=== PATIENT | male | born 1980 | race Caucasian/White ===

== ENCOUNTER 2019-01-20 14:00 | Emergency (ER) | payer OTHER, SELFPAY ==
[2019-01-20 14:07] VITALS: BP 142/90; PULSE 80; RESP 20; TEMP 36.5; O2SAT 98; BMI 22.4
--- NOTE | 2019-01-20 14:26 | DI.RAD.S_ITS ---
PROCEDURE: XR FINGER RT MIN 2V INDICATIONS: caught in bolt fastener, obtained avulsion right thumb TECHNIQUE: AP hand, 2 views of the first sign report finger(s) acquired. COMPARISON: None. FINDINGS: Bones: No fractures or dislocations. No suspicious bony lesions. Soft tissues: No suspicious soft tissue calcifications. IMPRESSION: No fracture or foreign body seen. Dictated by: Antonio Guthrie M.D. on 01/20/2019 at 15:42 Approved by: Antonio Guthrie M.D. on 01/20/2019 at 15:43
--- NOTE | 2019-01-20 14:59 | PC.NURSE ---
contacted [facility] on [place], no records of tetanus.
--- NOTE | 2019-01-20 15:28 | ED.TRAUMA ---
HPI - Trauma <MICHELLE Harris - Last Filed: 01/20/19 19:27> General Chief Complaint: Extremity Injury, Upper Stated Complaint: wound right hand thumb from work accident Time Seen by Provider: 01/20/19 14:43 Source: patient Mode of arrival: ambulatory Limitations: no limitations History of Present Illness HPI narrative: 38-year-old healthy male presents emergency department complaining of right thumb laceration. He states he pinched the palmar surface of his thumb between a hydraulic tool and a fastener about an hour ago. He states the pain is a 2/10 and is worse with movement. He states bleeding was controlled with a pressure dressing. Denies numbness, tingling, limited range of motion, fevers, chest pain, shortness of breath, hand pain, elbow pain, or trauma to any other areas. Related Data Previous Rx's Medication Instructions Recorded cephalexin 500 mg PO QID 7 Days #28 cap 01/20/19 Allergies Allergy/AdvReac Type Severity Reaction Status Date / Time No Known Drug Allergies Allergy Verified 01/20/19 15:27 Review of Systems <MICHELLE Harris - Last Filed: 01/20/19 19:27> Review of Systems REVIEW OF SYSTEMS: GENERAL: Denies fever or chills. HENT: Denies head trauma. EYE: Denies double vision or vision loss. CARDIOVASCULAR: Denies syncope. MUSCULOSKELETAL: Denies weakness, or deformities. INTEGUMENTARY: Complains of laceration, see HPI. NEURO: Denies numbness or tingling. PFSH <MICHELLE Harris - Last Filed: 01/20/19 19:27> Medical History No significant medical problems (Acute) Social History Smoking Status: Never smoker Social History Smoking Status: Never smoker Exam <MICHELLE Harris - Last Filed: 01/20/19 19:27> Initial Vital Signs Initial Vital Signs: Vital Signs Temperature 97.7 F 01/20/19 14:07 Pulse Rate 80 01/20/19 14:07 Respiratory Rate 20 01/20/19 14:07 Blood Pressure 142/90 H 01/20/19 14:07 Pulse Oximetry 98 01/20/19 14:07 PHYSICAL EXAMINATION: GENERAL: Well groomed, alert, and cooperative. Answers questions promptly and appropriately. Vital signs noted. HENT: Normocephalic, atraumatic. RESPIRATORY: Normal respiratory rate, trachea midline, airway patent. No stridor, nasal flaring or accessory muscle use. MUSCULOSKELETAL: Normal gait and coordination. Equal tone and mass bilaterally. Full range of motion of right thumb, right hand, and right wrist. Sensation remains intact to thumb, strength was intact as well. Patient was able to make a a fist and extend his thumb without difficulty or increased pain. EXTREMITIES: CMS intact. Moves all extremities. SKIN: Warm, dry, soft, appropriate color for ethnicity. 6cm by 3cm laceration to right palmar surface of thumb. Tendon visible on wound bed. Bleeding controlled. No surrounding erythema. Sanguinous discharge from wound. Wound was irrigated with over 300 mL of normal saline. NEURO: Alert and Oriented X 3. Good coordination. PSYCH: Appropriate affect and mood. <Kena Warner DO - Last Filed: 01/21/19 07:32> Initial Vital Signs Initial Vital Signs: Vital Signs Temperature 97.7 F 01/20/19 14:07 Pulse Rate 80 01/20/19 14:07 Respiratory Rate 20 01/20/19 14:07 Blood Pressure 142/90 H 01/20/19 14:07 Pulse Oximetry 98 01/20/19 14:07 Procedures <MICHELLE Harris - Last Filed: 01/20/19 19:27> Laceration Repair R Thumb: Site: upper extremity Side (If applicable): right Size (cm): 6 Description: linear Depth: simple, single layer Local Anesthetic: lidocaine 1% and with bicarb Amount of anesthesia used (mL): 8 Pre-repair: wound explored and irrigated extensively Skin layer closed with: nylon Size (cm): 4-0 Number of sutures: 7 Technique: simple, interrupted Nerve Block Nerve Block 1: Time out performed: Yes Local Anesthetic: lidocaine 1% and with bicarb Amount of anesthesia used (mL): 8 Side: right Nerve Blocks: digital Procedure Successful: Yes Patient Tolerated Procedure: Well Complications: none Course <MICHELLE Harris - Last Filed: 01/20/19 19:27> Course Narrative: After wound was extensively irrigated, it was closed with sutures. Dr. Warner also visualized the wound. Orders Ordered: Discontinued Medications Bacitracin (Bacitracin) 1 applic TOP NOW ONE Stop: 01/20/19 16:46 Last Admin: 01/20/19 18:04 Dose: Not Given Bacitracin (Bacitracin) 1 applic TOP NOW ONE Stop: 01/20/19 18:03 Last Admin: 01/20/19 18:03 Dose: 1 applic Diphtheria/Tetanus/Acell Pertussis (Adacel) 0.5 ml IM .ONCE ONE Stop: 01/20/19 15:25 Last Admin: 01/20/19 15:30 Dose: 0.5 ml Lidocaine/Sodium Bicarbonate (Buffered Lidocaine 10 Ml Syr) 10 ml INJ NOW ONE Stop: 01/20/19 15:28 Last Admin: 01/20/19 15:32 Dose: 10 ml Tetanus/Diphtheria Toxoids (Td) 0.5 ml IM .ONCE ONE Stop: 01/20/19 14:59 Last Admin: 01/20/19 16:02 Dose: Not Given Vital Signs - 8 hr 01/20/19 14:07 01/20/19 17:42 Temperature 97.7 F Pulse Rate 80 Respiratory Rate 20 15 Blood Pressure 142/90 H Blood Pressure [Left Arm] 126/83 Pulse Oximetry 98 100 <Kena Warner, DO - Last Filed: 01/21/19 07:32> Orders Ordered: Discontinued Medications Bacitracin (Bacitracin) 1 applic TOP NOW ONE Stop: 01/20/19 16:46 Last Admin: 01/20/19 18:04 Dose: Not Given Bacitracin (Bacitracin) 1 applic TOP NOW ONE Stop: 01/20/19 18:03 Last Admin: 01/20/19 18:03 Dose: 1 applic Diphtheria/Tetanus/Acell Pertussis (Adacel) 0.5 ml IM .ONCE ONE Stop: 01/20/19 15:25 Last Admin: 01/20/19 15:30 Dose: 0.5 ml Lidocaine/Sodium Bicarbonate (Buffered Lidocaine 10 Ml Syr) 10 ml INJ NOW ONE Stop: 01/20/19 15:28 Last Admin: 01/20/19 15:32 Dose: 10 ml Tetanus/Diphtheria Toxoids (Td) 0.5 ml IM .ONCE ONE Stop: 01/20/19 14:59 Last Admin: 01/20/19 16:02 Dose: Not Given Vital Signs - 8 hr 01/20/19 14:07 01/20/19 17:42 Temperature 97.7 F Pulse Rate 80 Respiratory Rate 20 15 Blood Pressure 142/90 H Blood Pressure [Left Arm] 126/83 Pulse Oximetry 98 100 [facility] - Trauma <MICHELLE Harris - Last Filed: 01/20/19 19:27> Medical Records Attestation: I reviewed the patient's medical records. Lab Data Attestation: I reviewed the patient's lab results. Imaging Data Right Digit XR: Radiologist's impression: [address] [address] XRay Report Signed Patient: Stevan Bower JMR#: [id number] : 1980Acct:[id number] Age/Sex: 38 / MDate of Service: 01/20/19 Loc: ED Accession Number: [id number] Procedure: XR finger RT min 2V Ordering Provider: Kena Warner D.O. PROCEDURE: XR FINGER RT MIN 2V INDICATIONS: caught in bolt fastener, obtained avulsion right thumb TECHNIQUE: AP hand, 2 views of the first sign report finger(s) acquired. COMPARISON: None. FINDINGS: Bones: No fractures or dislocations. No suspicious bony lesions. Soft tissues: No suspicious soft tissue calcifications. IMPRESSION: No fracture or foreign body seen. Dictated by: Antonio Guthrie M.D. on 01/20/2019 at 15:42 Approved by: Antonio Guthrie M.D. on 01/20/2019 at 15:43 [facility] Narrative Medical decision making narrative: Simple laceration requiring sutures, due to tendon exposure prophylactic antibiotics were given. No bony involvement due to no findings on x-ray. Discharge Plan Departure Patient Disposition: Home Clinical Impression: Laceration Discharge Date/Time: 01/20/19 18:15 Interventions: ED Discharge Assessment Last Done: 01/20/19 18:12 Instructions: DI for Laceration Repair -- Simple Activity Restrictions/Additional Instructions: Thank you for entrusting me with your care today. As discussed, your x-ray is negative for fractures. I have placed 7 sutures in your thumb. Because your tendon was exposed I prescribed you antibiotics, please take these as directed. Your sutures can be removed in about 10 days, this can be done at your primary care provider office or the walk-in clinic. Please monitor your wound for signs of infection such as increased redness, significant swelling, pus drainage, or fevers. If this occurs, please return to the emergency department. Prescriptions: New cephalexin 500 mg capsule 500 mg PO QID 7 Days Qty: 28 RF: 0 <Kena Warner DO - Last Filed: 01/21/19 07:32> [facility] ED Attending Yue Attestation: I was immediately available in the department for consultation. Documentation has been reviewed. I agree with assessment and plan.
[2019-01-20] MEDS: TET,DIPH,PERTUSS(ACELL),VAC/PF 0.5 ML SYRINGE IM (15:30)
[2019-01-20] MEDS: LIDO 1%/SOD BICARB 8.4% (10ML) 10 ML SYRINGE INJ (15:32)
--- NOTE | 2019-01-20 15:33 | ED_ITS ---
HPI - Trauma <MICHELLE Harris - Last Filed: 01/20/19 19:27> General Chief Complaint: Extremity Injury, Upper Stated Complaint: wound right hand thumb from work accident Time Seen by Provider: 01/20/19 14:43 Source: patient Mode of arrival: ambulatory Limitations: no limitations History of Present Illness HPI narrative: 38-year-old healthy male presents emergency department complaining of right thumb laceration. He states he pinched the palmar surface of his thumb between a hydraulic tool and a fastener about an hour ago. He states the pain is a 2/10 and is worse with movement. He states bleeding was controlled with a pressure dressing. Denies numbness, tingling, limited range of motion, fevers, chest pain, shortness of breath, hand pain, elbow pain, or trauma to any other areas. Related Data Previous Rx's Medication Instructions Recorded cephalexin 500 mg PO QID 7 Days #28 cap 01/20/19 Allergies Allergy/AdvReac Type Severity Reaction Status Date / Time No Known Drug Allergies Allergy Verified 01/20/19 15:27 Review of Systems <MICHELLE Harris - Last Filed: 01/20/19 19:27> Review of Systems REVIEW OF SYSTEMS: GENERAL: Denies fever or chills. HENT: Denies head trauma. EYE: Denies double vision or vision loss. CARDIOVASCULAR: Denies syncope. MUSCULOSKELETAL: Denies weakness, or deformities. INTEGUMENTARY: Complains of laceration, see HPI. NEURO: Denies numbness or tingling. PFSH <MICHELLE Harris - Last Filed: 01/20/19 19:27> Medical History No significant medical problems (Acute) Social History Smoking Status: Never smoker Social History Smoking Status: Never smoker Exam <MICHELLE Harris - Last Filed: 01/20/19 19:27> Initial Vital Signs Initial Vital Signs: Vital Signs Temperature 97.7 F 01/20/19 14:07 Pulse Rate 80 01/20/19 14:07 Respiratory Rate 20 01/20/19 14:07 Blood Pressure 142/90 H 01/20/19 14:07 Pulse Oximetry 98 01/20/19 14:07 PHYSICAL EXAMINATION: GENERAL: Well groomed, alert, and cooperative. Answers questions promptly and appropriately. Vital signs noted. HENT: Normocephalic, atraumatic. RESPIRATORY: Normal respiratory rate, trachea midline, airway patent. No stridor, nasal flaring or accessory muscle use. MUSCULOSKELETAL: Normal gait and coordination. Equal tone and mass bilaterally. Full range of motion of right thumb, right hand, and right wrist. Sensation remains intact to thumb, strength was intact as well. Patient was able to make a a fist and extend his thumb without difficulty or increased pain. EXTREMITIES: CMS intact. Moves all extremities. SKIN: Warm, dry, soft, appropriate color for ethnicity. 6cm by 3cm laceration to right palmar surface of thumb. Tendon visible on wound bed. Bleeding controlled. No surrounding erythema. Sanguinous discharge from wound. Wound was irrigated with over 300 mL of normal saline. NEURO: Alert and Oriented X 3. Good coordination. PSYCH: Appropriate affect and mood. <Kena Warner DO - Last Filed: 01/21/19 07:32> Initial Vital Signs Initial Vital Signs: Vital Signs Temperature 97.7 F 01/20/19 14:07 Pulse Rate 80 01/20/19 14:07 Respiratory Rate 20 01/20/19 14:07 Blood Pressure 142/90 H 01/20/19 14:07 Pulse Oximetry 98 01/20/19 14:07 Procedures <MICHELLE Harris - Last Filed: 01/20/19 19:27> Laceration Repair R Thumb: Site: upper extremity Side (If applicable): right Size (cm): 6 Description: linear Depth: simple, single layer Local Anesthetic: lidocaine 1% and with bicarb Amount of anesthesia used (mL): 8 Pre-repair: wound explored and irrigated extensively Skin layer closed with: nylon Size (cm): 4-0 Number of sutures: 7 Technique: simple, interrupted Nerve Block Nerve Block 1: Time out performed: Yes Local Anesthetic: lidocaine 1% and with bicarb Amount of anesthesia used (mL): 8 Side: right Nerve Blocks: digital Procedure Successful: Yes Patient Tolerated Procedure: Well Complications: none Course <MICHELLE Harris - Last Filed: 01/20/19 19:27> Course Narrative: After wound was extensively irrigated, it was closed with sutures. Dr. Warner also visualized the wound. Orders Ordered: Discontinued Medications Bacitracin (Bacitracin) 1 applic TOP NOW ONE Stop: 01/20/19 16:46 Last Admin: 01/20/19 18:04 Dose: Not Given Bacitracin (Bacitracin) 1 applic TOP NOW ONE Stop: 01/20/19 18:03 Last Admin: 01/20/19 18:03 Dose: 1 applic Diphtheria/Tetanus/Acell Pertussis (Adacel) 0.5 ml IM .ONCE ONE Stop: 01/20/19 15:25 Last Admin: 01/20/19 15:30 Dose: 0.5 ml Lidocaine/Sodium Bicarbonate (Buffered Lidocaine 10 Ml Syr) 10 ml INJ NOW ONE Stop: 01/20/19 15:28 Last Admin: 01/20/19 15:32 Dose: 10 ml Tetanus/Diphtheria Toxoids (Td) 0.5 ml IM .ONCE ONE Stop: 01/20/19 14:59 Last Admin: 01/20/19 16:02 Dose: Not Given Vital Signs - 8 hr 01/20/19 14:07 01/20/19 17:42 Temperature 97.7 F Pulse Rate 80 Respiratory Rate 20 15 Blood Pressure 142/90 H Blood Pressure [Left Arm] 126/83 Pulse Oximetry 98 100 <Kena Warner, DO - Last Filed: 01/21/19 07:32> Orders Ordered: Discontinued Medications Bacitracin (Bacitracin) 1 applic TOP NOW ONE Stop: 01/20/19 16:46 Last Admin: 01/20/19 18:04 Dose: Not Given Bacitracin (Bacitracin) 1 applic TOP NOW ONE Stop: 01/20/19 18:03 Last Admin: 01/20/19 18:03 Dose: 1 applic Diphtheria/Tetanus/Acell Pertussis (Adacel) 0.5 ml IM .ONCE ONE Stop: 01/20/19 15:25 Last Admin: 01/20/19 15:30 Dose: 0.5 ml Lidocaine/Sodium Bicarbonate (Buffered Lidocaine 10 Ml Syr) 10 ml INJ NOW ONE Stop: 01/20/19 15:28 Last Admin: 01/20/19 15:32 Dose: 10 ml Tetanus/Diphtheria Toxoids (Td) 0.5 ml IM .ONCE ONE Stop: 01/20/19 14:59 Last Admin: 01/20/19 16:02 Dose: Not Given Vital Signs - 8 hr 01/20/19 14:07 01/20/19 17:42 Temperature 97.7 F Pulse Rate 80 Respiratory Rate 20 15 Blood Pressure 142/90 H Blood Pressure [Left Arm] 126/83 Pulse Oximetry 98 100 [facility] - Trauma <MICHELLE Harris - Last Filed: 01/20/19 19:27> Medical Records Attestation: I reviewed the patient's medical records. Lab Data Attestation: I reviewed the patient's lab results. Imaging Data Right Digit XR: Radiologist's impression: [address] [address] XRay Report Signed Patient: Stevan Bower JMR#: [id number] : 1980Acct:[id number] Age/Sex: 38 / MDate of Service: 01/20/19 Loc: ED Accession Number: [id number] Procedure: XR finger RT min 2V Ordering Provider: Kena Warner D.O. PROCEDURE: XR FINGER RT MIN 2V INDICATIONS: caught in bolt fastener, obtained avulsion right thumb TECHNIQUE: AP hand, 2 views of the first sign report finger(s) acquired. COMPARISON: None. FINDINGS: Bones: No fractures or dislocations. No suspicious bony lesions. Soft tissues: No suspicious soft tissue calcifications. IMPRESSION: No fracture or foreign body seen. Dictated by: Antonio Guthrie M.D. on 01/20/2019 at 15:42 Approved by: Antonio Guthrie M.D. on 01/20/2019 at 15:43 [facility] Narrative Medical decision making narrative: Simple laceration requiring sutures, due to tendon exposure prophylactic antibiotics were given. No bony involvement due to no findings on x-ray. Discharge Plan Departure Patient Disposition: Home Clinical Impression: Laceration Discharge Date/Time: 01/20/19 18:15 Interventions: ED Discharge Assessment Last Done: 01/20/19 18:12 Instructions: DI for Laceration Repair -- Simple Activity Restrictions/Additional Instructions: Thank you for entrusting me with your care today. As discussed, your x-ray is negative for fractures. I have placed 7 sutures in your thumb. Because your tendon was exposed I prescribed you antibiotics, please take these as directed. Your sutures can be removed in about 10 days, this can be done at your primary care provider office or the walk-in clinic. Please monitor your wound for signs of infection such as increased redness, significant swelling, pus drainage, or fevers. If this occurs, please return to the emergency department. Prescriptions: New cephalexin 500 mg capsule 500 mg PO QID 7 Days Qty: 28 RF: 0 <Kena Warner DO - Last Filed: 01/21/19 07:32> Past[facility] ED Attending Yue Attestation: I was immediately available in the department for consultation. Documentation has been reviewed. I agree with assessment and plan.
--- NOTE | 2019-01-20 16:16 | PC.NURSE ---
right thumb with avulsion, tendon exposed, full rom, +cms intact. pt left handed.
[2019-01-20 17:42] VITALS: BP 126/83; RESP 15; O2SAT 100
[2019-01-20] MEDS: BACITRACIN OINT 0.9 GM PCKT 1 APPLIC TOP (18:03)
--- NOTE | 2019-01-20 18:18 | PC.NURSE ---
Irrigated wound with normal saline 500 ml, scrubbed with sterile 4X4's. Non-stick pad applied with bulky guaze wrap.
== END 2019-01-20 18:15 | disposition home or self-care (01) ==
PROVIDERS: Emergency Provider Nurse Practitioner
DX: S61.011A Laceration without foreign body of right thumb without damage to nail, initial encounter (principal); W23.0XXA Caught, crushed, jammed, or pinched between moving objects, initial encounter; Y99.0 Civilian activity done for income or pay; Z23 Encounter for immunization
CPT/HCPCS: 12002; 12011; 64450; 73140; 90471; 99283; 90715